=== PATIENT | female | born 1995 | race African-American/Black ===

== ENCOUNTER 2018-01-13 22:29 | Emergency (ER) | payer MEDICAID ==
[~2018-01-13] VITALS: Ht 165.1 cm; Wt 73.0 kg
[2018-01-13 23:41] LABS: BASOPHILS % 1.1 % (0.0-2.0); HEMATOCRIT. 38.8 % (36.0-48.0); LYMPHOCYTES % 19.7 % (20.0-50.0); MEAN CORPUSCULAR HEMOGLOBIN 28.5 pg (28.0-32.0); MEAN CORPUSCULAR VOLUME 85.4 fL (81.0-99.0); MEAN PLATELET VOLUME 8.7 fl (7.4-10.4); MONOCYTES % 5.8 % (2.0-8.0); NEUTROPHILS % 72.4 % (40.0-76.0); PLATELET 187 x1000/uL (130-400); RED BLOOD CELL COUNT 4.55 mill/uL (4.2-5.4); RED CELL DISTRIBUTION WIDTH 14.7 % (11.6-14.6)
[2018-01-13 23:48] LABS: CHLORIDE 105 mEq/L (98-107)
[2018-01-14] MEDS ORDERED: SODIUM CHLORIDE 0.9% 1,000 ML IV ONE (00:47)
[2018-01-14 01:16] LABS: HCG SCREEN NEGATIVE
[2018-01-14 03:30] VITALS: BP 156/46
[2018-01-14] MEDS ORDERED: IBUPROFEN 400MG TABLET PO ONE (03:30)
[2018-01-14] MEDS ORDERED: IOHEXOL-350 100 ML BOTTLE ONE (03:49)
== END 2018-01-14 04:33 | disposition home or self-care (01) ==
LOC: ER 22:29
DX: R07.2 Precordial pain (principal); R06.02 Shortness of breath; J45.909 Unspecified asthma, uncomplicated
CPT/HCPCS: 36415; 71045; 71275; 80053; 83880; 84484; 84703; 85025; 85379; 93005; 99285; J7030; Q9967

== ENCOUNTER 2023-08-31 19:33 | Emergency (ER) | payer MEDICAID ==
[~2023-08-31] VITALS: Ht 165.1 cm; Wt 70.0 kg
[2023-08-31 21:50] VITALS: O2SAT 100
[2023-09-01] MEDS: IBUPROFEN 600MG TABLET PO STA (00:05)
[2023-09-01] MEDS ORDERED: IBUP-2029 PO (00:07)
[2023-09-01 00:36] VITALS: BP 126/64; PULSE 95; RESP 20; TEMP 98
== END 2023-09-01 00:38 | disposition home or self-care (01) ==
LOC: ER 19:33
DX: S60.221A Contusion of right hand, initial encounter (principal); W18.39XA Other fall on same level, initial encounter; Y93.89 Activity, other specified; Y92.89 Other specified places as the place of occurrence of the external cause; Y99.8 Other external cause status
CPT/HCPCS: 29125; 73120; 81025; 99283